=== PATIENT | female | born 1985 | race Caucasian/White ===

== ENCOUNTER 2016-12-12 03:59 | Emergency (ER) | payer SELFPAY ==
[2016-12-12] MEDS ORDERED: Acetaminophen 500 MG TAB ONE (05:10)
== END 2016-12-12 04:45 | disposition home or self-care (01) ==
LOC: NAV ERS 03:59
DX: S00.83XA Contusion of other part of head, initial encounter (principal); F10.129 Alcohol abuse with intoxication, unspecified; Z79.899 Other long term (current) drug therapy; I10 Essential (primary) hypertension; F17.210 Nicotine dependence, cigarettes, uncomplicated; Y04.2XXA Assault by strike against or bumped into by another person, initial encounter
CPT/HCPCS: 99284